=== PATIENT | female | born 1950 | race Caucasian/White ===

== ENCOUNTER 2017-04-26 05:25 | Day surgery (SDC) | payer MEDICARE, BC ==
[2017-04-24 08:55] LABS: HEMATOCRIT 40.7 % (36.0-48.0); HEMOGLOBIN 13.4 g/dL (12-16); MCH 28.9 pg (26.0-34.0); MCHC 32.9 g/dL (31.0-37.0); MCV 87.7 fL (80.0-100.0); MEAN PLATELET VOLUME 10.7 fL (7.4-10.4); RBC 4.64 10x6/uL (4.00-5.40); RDW 14.1 % (11.5-14.5); WBC 5.4 10x3/uL (4.8-10.8)
[2017-04-24 09:05] LABS: CALC OSMOLALITY 281 mosm/kg (275-300); CALCIUM 9.4 mg/dL (8.5-10.1); CARBON DIOXIDE 24.5 mmol/L (21.0-32.0); CHLORIDE - SERUM 108 mmol/L (98-107); CREATININE - SERUM 0.8 mg/dL (0.6-1.3); GLUCOSE 132 mg/dL (74-106); SODIUM 141 mmol/L (136-145); UREA NITROGEN 11 mg/dL (7-18); eGFR NON AFRICAN AMERICAN 76 mL/min (90-120)
[~2017-04-26 05:25] MED LIST: GLUCOPHAGE500 MG PO; NYAMYC60 GM TP; PRINIVIL20 MG PO; ROBAXIN-750750 MG PO; TOPROL XL100 MG PO; ZOCOR40 MG PO
[2017-04-26 08:23] VITALS: BP 135/70; BMI 38.1
--- NOTE | 2017-04-27 14:00 | HP ---
PATIENT: YASMINE MERCER MEDICAL RECORD: [id number] ACCOUNT: [id number] LOCATION:[facility] : 52 ADMISSION DATE: 04/26/17 HISTORY AND PHYSICAL EXAMINATION CHIEF COMPLAINT: Here for endoscopy. HISTORY OF PRESENT ILLNESS: She has had a history of colon polyps. There were complex polyps in their size and location. The patient underwent colonoscopy back in February of 2016 and at 60 cm, there was a tubulovillous adenoma with low-grade atypia, dysplasia. She underwent a hot biopsy forceps polypectomy times 1 as well as total colonoscopy to cecum as well as some stool cultures and random biopsies. At that time, she had been having some hematochezia. She is not having any today. She has had a history of diarrhea in the past as well as peptic ulcer disease. ALLERGIES: No known drug allergies. HOME MEDICATIONS: Metformin, Toprol-XL, lisinopril. SOCIAL HISTORY: Ex-smoker. PAST MEDICAL AND SURGICAL HISTORY: History of cardiac arrhythmia, hypertension, hho-uyurnin-adlceyaja diabetes mellitus, COPD, history of appendectomy, history of laparoscopic cholecystectomy, history of hysterectomy. PHYSICAL EXAMINATION: GENERAL: The patient does not appear acutely ill. She does not appear chronically ill. VITAL SIGNS: Reviewed. HEAD: External ears appear normal. EYES: Extraocular movements are intact. NECK: Trachea is midline. CHEST: No intercostal retractions. PULMONARY: Nonlabored, no stridor. ABDOMEN: Nontender. IMPRESSION: History of complex colon polyps including a tubulovillous adenoma with low-grade atypia at 60 cm. PLAN: Colonoscopy with argon plasma clinical education coordinator in the operating room. TRANSINT:[id number] Voice Confirmation ID: [id number] DOCUMENT ID: [id number] HISTORY AND PHYSICAL [id number] YASMINE MERCER AMANDA NEVILLE MD at 1400 CC: ASHLEY ESPITIA DO [id number] DICTATION DATE: 04/26/171421 ESTIMATOR PRINTING PLATE MAKING: 04/26/17 1435 [facility] 04/26/17 [id number] [place] [address]
--- NOTE | 2017-05-19 10:04 | OP ---
PATIENT NAME: YASMINE MERCER MEDICAL RECORD: [id number] :52 LOCATION:[facility] ADMISSION DATE: SURGEON: ANGEL DIAMOND MD DATE OF OPERATION: 04/26/2017 PREOPERATIVE DIAGNOSIS: History of complex colon polyp at 60 cm. POSTOPERATIVE DIAGNOSES: No evidence of regrowth of the suspicious polyp. There were 2 new polyps. One was a flat polyp that was an 8-mm polyp. The other was a cecal polyp, which was a 6-mm sessile polyp. PROCEDURES: 1. Total colonoscopy to cecum. 2. Hot biopsy forceps polypectomy times 2. SURGEON: Angel Diamond MD TECHNICAL INTERN: None. BLOOD LOSS: Minimal. ANESTHESIA: General. COMPLICATIONS: None. The risks, possible complications, and alternatives to the procedure were explained to the patient. She elects to proceed. Procedure was performed in the operating room as I felt we were going to have to use the argon plasma business line controller, which was not necessary during this operative procedure. OPERATIVE COURSE: The patient was conveyed to the operating room electively on 04/26/2017. General anesthesia was induced by the anesthesia staff. The patient was placed in the Escobar position. A digital rectal examination was performed. A colonoscope was inserted through the anus. It was easily advanced to the cecum. Upon withdrawal, I irrigated and aspirated extensively. The pullback was greater than 18-minute pullback. Two hot biopsy forceps polypectomies were performed. The polyps were removed in their entireties. A retroflexed view was obtained in the rectum. I then unretroflexed the scope and removed it under direct vision. I will see the patient back in my office in 2-3 weeks. I will plan for her next colonoscopy to be performed by me in the GI lab in 3 years. TRANSINT:[id number] Voice Confirmation ID: [id number] DOCUMENT ID: [id number] 05/15/2017 Edited PO DX per polo Corral. OPERATIVE REPORT [id number] YASMINE MERCER ANGEL DIAMOND MD at 1004 CC: [id number] DICTATION DATE: 04/26/17 1426 DISTRICT MANAGER POSTAL SERVICE: 04/26/17 1448 [facility] 04/26/17 [place] [address]
== END 2017-04-26 15:43 | disposition home or self-care (01) ==
LOC: D.OPS 05:25 → D.PAN 10:00 → D.OPS 10:30 → D.PAN 11:10 → D.OPS 11:30 → D.PAN 11:30 → D.OPS 15:43
PROVIDERS: Anesthesiology
DX: K63.5 Polyp of colon (principal); I10 Essential (primary) hypertension; E11.9 Type 2 diabetes mellitus without complications; J44.9 Chronic obstructive pulmonary disease, unspecified; Z87.891 Personal history of nicotine dependence; Z01.812 Encounter for preprocedural laboratory examination

== ENCOUNTER → 2017-09-13 13:23 | Outpatient (CLI) | payer MEDICARE, BC | END | disposition home or self-care (01) | LOC: D.CT 13:23 | DX: R10.9 Unspecified abdominal pain (principal) ==